=== PATIENT | female | born 1950 | race American Indian/Alaskan Native ===

== ENCOUNTER 2021-08-16 06:17 | Emergency (ER) | payer MEDICARE ==
[2021-08-16 07:30] VITALS: BP 102/69
--- NOTE | 2021-08-16 08:17 | Emergency Department Report ---
ED Eye Problem HPI - General Chief complaint: Eye Problems Stated complaint: RED RUNNY EYE 3WKS POST SURGERY Time Seen by Provider: 08/16/21 08:12 Source: patient Mode of arrival: Ambulatory Limitations: No Limitations - History of Present Illness Initial comments: The patient was evaluated in the emergency department for symptoms described in the history of present illness. He/she was evaluated in the context of the global COVID-19 pandemic, which necessitated consideration that the patient might be at risk for infection with the virus that causes COVID-19. Institutional protocols and algorithms that pertain to the evaluation of patients at risk for COVID-19 are in a state of rapid change based on information released by regulatory bodies including the CDC and federal and state organizations. These policies and algorithms were followed during the patient's care in the emergency department. Please note that these policies, procedures and recommendations changed on a rapid basis. 70-year-old -[place] female presents to the emergency room states that she woke up this morning and her left eye has been watering and pain. Patient states that she had cataract surgery on 08/07/2021. She reports she is scheduled to follow-up with Dr. Castellon on Tuesday but he called her back and states he can see her tomorrow. Patient is taking nothing for her pain. Patient reports a past medical history of hypertension and is currently on amlodipine and Lasix and vitamins. chief complaint: eye pain, eye redness -: This morning Onset Description: awoke with symptoms Location: left eye If Injury: none Eye Symptoms: redness, pain, other (Watery) Severity: mild Severity scale (0 -10): 4 If Pain, Quality: aching Consistency: intermittent Context: recent eye procedure Treatments Prior to Arrival: none - Related Data Patient Tetanus UTD: Yes Allergies Allergy/AdvReac Type Severity Reaction Status Date / Time No Known Allergies Allergy Verified 08/16/21 07:31 ED Review of Systems ROS: Stated complaint: RED RUNNY EYE 3WKS POST SURGERY Other details as noted in HPI ED Past Medical Hx - Past Medical History Hx Hypertension: Yes ED Physical Exam - General Limitations: No Limitations General appearance: alert, in no apparent distress - Head Head exam: Present: atraumatic, normocephalic - Eye Eye exam: Present: normal appearance - Expanded Eye Exam Expanded Eyelids: Normal Inspection: Right Pupils: Regular, Round: Bilateral, Reactive: Bilateral Sclera/Conjunctival: Normal Inspection: Bilateral - ENT ENT exam: Present: mucous membranes moist, normal external ear exam - Neck Neck exam: Present: normal inspection, full ROM - Respiratory Respiratory exam: Absent: accessory muscle use - Cardiovascular Cardiovascular Exam: Present: regular rate - Extremities Exam Extremities exam: Present: normal inspection, full ROM - Neurological Exam Neurological exam: Present: alert, oriented X3, normal gait - Psychiatric Psychiatric exam: Present: normal affect, normal mood. Absent: depressed, agitated - Skin Skin exam: Present: warm, dry, intact, normal color. Absent: rash ED Course Vital Signs 08/16/21 07:29 Temperature 98.2 F Pulse Rate 57 L Respiratory 18 Rate Blood Pressure 102/69 [Left] O2 Sat by Pulse 100 Oximetry ED Medical Decision Making - Medical Decision Making 70-year-old -[place] female presents to the emergency room states that she woke up this morning and her left eye has been watering and pain. Patient states that she had cataract surgery on 08/07/2021. She reports she is scheduled to follow-up with Dr. Castellon on Tuesday but he called her back and states he can see her tomorrow. Patient is taking nothing for her pain. Patient reports a past medical history of hypertension and is currently on amlodipine and Lasix and vitamins. Patient instructed to take pain medication such as Tylenol or ibuprofen or Aleve. Instructed patient I will give her cataracts postsurgical inflammation and that she needs to follow that. Discussed with patient and keep her appointment with Dr. Demarco tomorrow. Patient verbalized understanding Critical care attestation.: If time is entered above; I have spent that time in minutes in the direct care of this critically ill patient, excluding procedure time. ED Disposition Clinical Impression: Pain, eye, left Disposition: HOME / SELF CARE / HOMELESS Is pt being admited?: No Does the pt Need Aspirin: No Condition: Stable Instructions: Pain Without a Known Cause, Cataract Surgery, Care After Additional Instructions: Keep your appointment with Dr. Castellon on Tuesday. You can take Tylenol or ibuprofen as needed for pain management. Or you can take your Aleve. Please refrain from lifting heavy objects Wear sunglasses when you are out in the sun be careful not to rub that eye. Referrals: STANLEY KNOWLES MD [Staff Physician] - 3-5 Days Forms: Work/School Release Form(ED) Time of Disposition: 08:15
== END 2021-08-16 08:43 | disposition home or self-care (01) ==
LOC: ED 06:17
DX: H57.12 Ocular pain, left eye (principal); I10 Essential (primary) hypertension
CPT/HCPCS: 99282